=== PATIENT | female | born 1945 | race Caucasian/White ===

== ENCOUNTER 2023-03-27 11:07 | Outpatient (CLI) | payer MEDICARE | END 2023-03-27 11:08 | disposition home or self-care (01) | LOC: CSHRAD 11:07 | PROVIDERS: ATTEND Internal Medicine Hematology & Oncology | DX: Z01.818 Encounter for other preprocedural examination (principal); C50.411 Malignant neoplasm of upper-outer quadrant of right female breast | CPT/HCPCS: 93005; 93010 ==